=== PATIENT | female | born 1995 | race Caucasian/White ===

== ENCOUNTER 2016-05-13 13:41 | Outpatient (CLI) | payer OTHER ==
[~2016-05-13] VITALS: Ht 152.4 cm; Wt 71.2 kg
[2016-05-13 14:00] VITALS: Ht 152.4 cm; Wt 71.2 kg
[2016-05-13 14:01] VITALS: BP 115/68; PULSE 90; RESP 20
[2016-05-13] MEDS ORDERED: PREN1TAB79 PO (14:03)
--- NOTE | 2016-05-13 14:42 | RADRPT ---
PROCEDURE: Ultrasound of the right lower extremity venous system. CLINICAL INDICATION: Right leg pain and swelling, deep venous thrombosis TECHNIQUE: Ruano scale with and without compression, color doppler, spectral doppler of the venous system of the right lower extremity was performed. Venous augmentation maneuvers were utilized. COMPARISON: No prior studies are available for comparison. FINDINGS: Common femoral vein: Patent. Superficial femoral vein: Patent. Popliteal vein: Patent. Calf veins: Patent. No soft tissue abnormalities are identified. IMPRESSION: No evidence of a deep vein thrombosis within the right lower extremity. RPTAT: AADD .Altaf Templeton MD, MD Date Time Electronically viewed and signed by .Altaf Templeton MD, on 05/13/2016 14:42 .B/
--- NOTE | 2016-05-13 14:42 | RADRPT ---
PROCEDURE: OB ultrasound for biophysical profile CLINICAL INDICATION: Biophysical profile. . TECHNIQUE: Multiple sonographic images of the pelvis were obtained. Transabdominal view of the gr avid uterus are available for review. The images were reviewed on a PACS workstation. COMPARISON: None FINDINGS: Single intrauterine gestation. Presentation: Cephalic. Partially visualized placenta: Fundal breathing movement = 2/2 tone = 2/2 motion = 2/2 HARLEY = 2/2 HARLEY = 10.6 cm heart rate: 135 beats per minute IMPRESSION: Single intrauterine gestation. Biophysical profile 10/09 RPTAT: AADD .Altaf Templeton MD, MD Date Time Electronically viewed and signed by .Altaf Templeton MD, on 05/13/2016 14:41 .B/
--- NOTE | 2016-05-13 15:07 | TRIAGE ---
OB Triage Datetime Report Generated by CPN: 05/13/2016 15:06 Datetime: 05/13/2016 14:16 Vaginal Exam Dilatation (cms): 0.0 Effacement (%): 0 Exam By: MACHO ROMERO Vaginal Bleeding: None Cervix, Consistency: Firm Cervix, Position: Midposition Datetime: 05/13/2016 13:55 Time of Arrival: 05/13/2016 13:35 EGA: 36.5 Arrived By: Ambulatory Arrived From: Home Chief Complaint: UCS SINCE 0400 Movement: Present Contractions: Denies/Absent Time Contractions Began: 05/13/2016 04:00 Rupture of Membranes: Denies Vaginal Bleeding: None Vaginal Discharge: Denies Recent Sexual Intercouse: Denies Abdominal Trauma: Not Applicable Patient Complaints: Contractions; Other Additional Patient Complaints: RIGHT LEG PAIN AND SWELLING Time Provider Notified: 05/13/2016 13:50 Provider Notified: DR OSBORNE Initial Plan: EFM,US OF RIGHT LEG OB US Datetime: 05/13/2016 13:54 Maternal Assessment Level of Consciousness: Fully Conscious DTR's/Clonus: DTRs 2+; No Clonus Headache: Denies Blurred Vision: No Respiratory Effort: Unlabored; Regular Rhythm; Equal Expansion Breath Sounds, Left: Clear and Equal Breath Sounds, Right: Clear and Equal Nausea/Vomiting: Denies RUQ Epigastric Pain: Denies Facial Edema: None Temperature Route: Axillary Fall Risk Assessment History of Falling: (0) No Secondary Diagnosis: (0) No Ambulatory Aid: (0) Bedrest/Nurse Assist IV Therapy: (0) No Gait: (0) Normal/Bedrest/Immobile Mental Status: (0) Oriented to Own Ability Fall Score: 0 Fall Risk Score Definition: No Risk: No action required Datetime: 05/13/2016 13:49 Maternal Assessment Level of Consciousness: Fully Conscious DTR's/Clonus: DTRs 2+ Headache: Denies Blurred Vision: No Nausea/Vomiting: Denies RUQ Epigastric Pain: Denies Facial Edema: None Labor Evaluation Frequency: NONE AT THIS TIME Pattern: Normal: <= 5 Contractions in 10 Minutes Resting Tone [place]: Relaxed Heart Rate FHR Baseline Rate: 145 Monitor Mode: External US FHR Baseline Changes: No Baseline Change Variability: Minimal - Undetectable to <=5 bpm Decelerations: None Category: Category I Pain Assessment Pain Scale: 7 Pain Presence: Intermittent Pain Type: Contraction Pain Location: Abdomen Pain Goal: 4 Membrane Status: Intact
--- NOTE | 2016-05-14 07:03 | PN ---
DATE: The patient is a 20-year-old with a ____ contractions. ____ vaginal bleeding. Positive movement. PAST MEDICAL HISTORY: None. Vital signs ____ within normal limits. Category 1 tracing. Os is closed. ____. The patient will be discharged home. 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 Dictated By: CLINTON OSBORNE MD /BECKI Conf#: [id number] DID#: [id number]
== END 2016-05-13 15:05 | disposition home or self-care (01) ==
LOC: OBT 13:41 → L-D 13:43 → OBT 15:05
PROVIDERS: ATTEND Specialist
DX: O36.8130 Decreased fetal movements, third trimester, not applicable or unspecified (principal); O26.893 Other specified pregnancy related conditions, third trimester; M79.661 Pain in right lower leg; M79.89 Other specified soft tissue disorders; O62.9 Abnormality of forces of labor, unspecified; Z3A.36 36 weeks gestation of pregnancy
CPT/HCPCS: 76818; 93971; Z7500; G0463

== ENCOUNTER 2016-05-28 16:48 | Outpatient (CLI) | payer OTHER ==
[~2016-05-28] VITALS: Ht 152.4 cm; Wt 73.6 kg
[~2016-05-28 16:48] MED LIST: PREN1TAB79 PO
[2016-05-28 17:30] VITALS: BP 119/58; PULSE 93; RESP 18; Ht 152.4 cm; Wt 73.6 kg
--- NOTE | 2016-05-29 07:11 | PN ---
DATE: The patient is a 20-year-old ____ weeks complaining of uterine contractions. ____ no vaginal bleedi ng. Positive movement. PAST MEDICAL HISTORY: None. PHYSICAL EXAMINATION: Stable. Exam within normal limits. Os is closed. NST is reactive. ASSESSMENT: Intrauterine at ____, false labor. PLAN: Discharge home. Follow up with OB within 2 to 3 days. ____ precautions given. Stable upon discharge. Dictated By: CLINTON OSBORNE MD /NTS Conf#: [id number] DID#: [id number]
== END 2016-05-28 18:12 | disposition home or self-care (01) ==
LOC: OBT 16:48 → L-D 16:48 → OBT 18:12
DX: O47.1 False labor at or after 37 completed weeks of gestation (principal); Z3A.38 38 weeks gestation of pregnancy
CPT/HCPCS: G0463

== ENCOUNTER 2016-05-29 23:14 | Inpatient (IN) | payer OTHER ==
[~2016-05-29] VITALS: Ht 152.4 cm; Wt 73.6 kg
[2016-05-29 23:30] VITALS: Ht 152.4 cm; Wt 73.6 kg
[2016-05-29 23:31] VITALS: BP 127/59; PULSE 71; RESP 18
[2016-05-30] MEDS: LACTATED RINGER'S 1,000 ML IV SCH ×2 (03:03→13:34)
[2016-05-30] MEDS ORDERED: LACTATED RINGER'S 1,000 ML IV PRN (03:19)
[2016-05-30] MEDS ORDERED: LIDOCAINE 1% (MPF) 30 ML INJ INJ PRN (03:30)
[2016-05-30] MEDS ORDERED: BUTORPHANOL 2 MG INJ IV PRN ×2 (03:30)
[2016-05-30] MEDS ORDERED: OXYTOCIN 30 UNITS/LR 500 ML IV SCH ×3 (03:30→09:00)
[2016-05-30] MEDS ORDERED: OXYTOCIN 30 UNITS/LR 500 ML IV PRN ×2 (03:30→22:00)
[2016-05-30] MEDS ORDERED: CARBOPROST 250 MCG INJ IM PRN ×2 (03:30→22:00)
[2016-05-30] MEDS ORDERED: AMPICILLIN 2 GM/NS (PMX) 100 ML IV ONE (03:30)
[2016-05-30] MEDS ORDERED: IBUPROFEN 600 MG TAB PO PRN (03:30)
[2016-05-30] MEDS ORDERED: MISOPROSTOL 200 MCG TAB PR PRN ×2 (03:30→22:00)
[2016-05-30] MEDS ORDERED: ACETAMINOPHEN/CODEINE #3 TAB PO PRN ×2 (03:30→22:00)
[2016-05-30] MEDS ORDERED: METHYLERGONOVINE 0.2 MG INJ IM PRN ×2 (03:30→22:00)
[2016-05-30 03:37] LABS: ADD SCAN DIFF NO
[2016-05-30 03:38] LABS: BASOPHILS % 0.4 % (0.0-2.0); EOSINOPHILS # 0.1 10^3/ul (0.0-0.5); EOSINOPHILS % 0.6 % (0.0-7.0); HEMATOCRIT 31.8 % (37.0-47.0); HEMOGLOBIN 10.4 g/dl (12.0-16.0); LYMPHOCYTES # 1.8 10^3/ul (0.8-2.9); LYMPHOCYTES % 21.6 % (15.0-51.0); MEAN CORPUSCULAR HEMOGLOBIN 29.5 pg (29.0-33.0); MEAN CORPUSCULAR HGB CONC 32.7 g/dl (32.0-37.0); MEAN CORPUSCULAR VOLUME 90.1 fl (82.0-101.0); MEAN PLATELET VOLUME 12.8 fl (7.4-10.4); MONOCYTE # 0.9 10^3/ul (0.3-0.9); NEUTROPHIL # 5.4 10^3/ul (1.6-7.5); PLATELET COUNT 209 10^3/UL (140-415); RED BLOOD COUNT 3.53 10^6/ul (4.20-5.40); RED CELL DISTRIBUTION WIDTH 13.3 % (11.5-14.5); WHITE BLOOD COUNT 8.1 10^3/ul (4.8-10.8)
[2016-05-30 03:48] LABS: INR 0.94; PROTIME 12.6 Sec (12.2-14.2)
[2016-05-30 03:49] LABS: PARTIAL THROMBOPLASTIN TIME 24.3 Sec (25.0-35.0)
[2016-05-30 03:58] LABS: ALBUMIN 3.1 g/dl (3.3-4.9); CHLORIDE 106 mmol/L (97-110); POTASSIUM 4.3 mmol/L (3.5-5.1); SODIUM 136 mmol/L (135-144)
[2016-05-30 04:00] LABS: CREATININE 0.77 mg/dl (0.44-1.00)
[2016-05-30 04:01] LABS: ALANINE AMINOTRANSFERASE 20 IU/L (13-69); ALBUMIN/GLOBULIN RATIO 0.96; ALKALINE PHOSPHATASE 199 IU/L (42-121); ANION GAP 10 (8-16); ASPARTATE AMINO TRANSFERASE 22 IU/L (15-46); BILIRUBIN,INDIRECT 0.2 mg/dl (0-1.1); BILIRUBIN,TOTAL 0.2 mg/dl (0.2-1.3); BLOOD UREA NITROGEN 15 mg/dl (7-20); CARBON DIOXIDE 24 mmol/L (21-31); GLUCOSE 87 mg/dl (70-220); TOTAL PROTEIN 6.3 g/dl (6.1-8.1)
[2016-05-30 04:02] LABS: CALCIUM 8.8 mg/dl (8.4-10.2)
[2016-05-30] MEDS ORDERED: FENTAnyl 2MCG/ML-ROPIV 0.2% 100 ML ONE (04:51)
[2016-05-30] MEDS ORDERED: FENTAnyl 2MCG/ML-ROPIV 0.2% 100 ML BAG EPI SCH (06:00)
[2016-05-30] MEDS ORDERED: ONDANSETRON 4 MG INJ IV PRN ×2 (06:00→22:00)
[2016-05-30] MEDS ORDERED: NALOXONE (0.4 MG/ML) INJ IV PRN (06:00)
[2016-05-30] MEDS ORDERED: HYDROmorphONE 1 MG/ML SYG IV PRN ×2 (06:00)
[2016-05-30] MEDS ORDERED: DIPHENHYDRAMINE 50 MG INJ IV PRN (06:00)
--- NOTE | 2016-05-30 07:27 | HP ---
Date/Time of Note Date/Time of Note DATE: 05/30/16 TIME: 07:22 OB - History Hx of Present Chief Complaint: contractions Estimated Due Date: Jun 07, 2016 : 1 Para: 0 Spontaneous : 0 Therapeutic : 0 Care: Good Care Ultrasounds: Normal mid trimester US Obstetrical Complications: None Medical Complications: None Past Family/Social History * Past Medical, Surgical, Family and Obstetric Histories reviewed from chart. GBS Status: Negative OB Admission Exam Vital Signs Vital Signs Vital Signs Date Time Temp Pulse Resp B/P Pulse Ox O2 Delivery O2 Flow Rate FiO2 05/29/16 23:31 98.1 71 18 127/59 Room Air Physical Exam HEENT: WNL Heart: Rhythm Normal Lungs: Clear Abdomen: WNL Extremities: Normal Reflexes: Normal Cervical Dilatation: 2cm Effacement: 100% Station: -1 Membranes: Intact Heart Rate: 140's Accelerations: Accelerations Present Decelerations: No Decelerations Varibility: Moderate Last 72 hours Lab Results CBC & BMP 05/30/16 03:03 Liver Function Test 05/30/16 03:03 Alanine Aminotransferase (ALT/SGPT) 20 Albumin 3.1 L Alkaline Phosphatase 199 H Aspartate Amino Transf (AST/SGOT) 22 Direct Bilirubin 0.00 Total Protein 6.3 OB Assessment/Plan Reason for admission: active labor Plan: Expectant Management ROSEMARY HER MD May 30, 2016 07:27
[2016-05-30] MEDS ORDERED: AMPICILLIN 1 GM/NS (PMX) 50 ML IV SCH (07:30)
[2016-05-30] MEDS ORDERED: LACTATED RINGER'S 1,000 ML IV* SCH (21:43)
--- NOTE | 2016-05-30 21:48 | PN ---
Date/Time of Note Date/Time of Note DATE: 05/30/16 TIME: 21:46 OB Subjective Subjective Subjective late entry note Patient is comfortable with epidural. Denies any complaint. OB Objective Objective Objective GA: Alert and oriented 4 , is not in any acute distress Abdomen: Soft, gravid, estimated weight 7.5 Sterile vaginal examination: 3 cm 80% -1 heart tracing: Category 1 GBS negative OB Assessment/Plan Other Assessment: IUP at 39 weeks and 1 day Early labor GBS negative heart tracing category 1 Other plan: Start active management of labor with Pitocin Anticipate RANJANA MEYER MD May 30, 2016 21:48
[2016-05-30 21:50] VITALS: BP 143/66; PULSE 63; RESP 18
--- NOTE | 2016-05-30 21:50 | LDN ---
Date/Time of Note Date/Time of Note DATE: 05/30/16 TIME: 21:48 Delivery Summary Weeks of Gestation 39 wekes and 1 day Placenta Delivered: Spontaneously Meconium: none Episiotomy: No Perineal laceration: 1 Laceration repair: first degree right labial laceration about 4 cm and 2 cm left labial laceration repaired with 3-0 chromic Anesthesia type: Epidural Estimated blood loss: 400 Sponge & Needle done & correct: Yes All needle counts correct: Yes Any foreign bodies felt in the: No Problems: Delivery Information Sex Sex: female Apgars 1 Minute: 9 5 Minute: 9 Suctioning Nose & mouth suctioned at mala: Yes Delee suction performed: Yes Umbilical Cord Umbilical cord with: 3 Vessels Cord presentations: no nuchal cord Cord Blood was obtained: Yes Mother & Baby Disposition Disposition Weight : 7 lbs and 8 oz RANJANA MEYER MD May 30, 2016 21:50
[2016-05-30] MEDS ORDERED: WITCH HAZEL/GLYCERIN PAD PR PRN (22:00)
[2016-05-30] MEDS ORDERED: DIPHENHYDRAMINE 25 MG CAP PO PRN (22:00)
[2016-05-30] MEDS ORDERED: ZOLPIDEM 5 MG TAB PO PRN (22:00)
[2016-05-30] MEDS ORDERED: LANOLIN 7 GM TUBE TOP PRN (22:00)
[2016-05-30 22:05] VITALS: BP 149/71; PULSE 66; RESP 18
[2016-05-30] MEDS: SENNA/DOCUSATE NA (8.6MG/50MG) TAB PO SCH (22:59)
[2016-05-30 23:05] LABS: HEMATOCRIT 31.4 % (37.0-47.0); HEMOGLOBIN 10.2 g/dl (12.0-16.0)
[2016-05-31] VITALS: BP 119/71; PULSE 74; RESP 18
[2016-05-31 04:00] VITALS: BP 99/46; PULSE 73
[2016-05-31] MEDS: IBUPROFEN 600 MG TAB PO SCH ×5 (06:37→23:09)
[2016-05-31 08:00] VITALS: BP 116/58; PULSE 75; RESP 16
[2016-05-31] MEDS: SENNA/DOCUSATE NA (8.6MG/50MG) TAB PO SCH ×2 (09:00→20:48)
--- NOTE | 2016-05-31 10:17 | PN ---
Date/Time of Note Date/Time of Note DATE: 05/31/16 TIME: 10:11 OB Subjective Subjective Subjective May 31, 2016 1 hospital consult This patient is a 20 years old primigravida who was admitted in the hospital yesterday after and had an spontaneous vaginal delivery. She had a laceration of the right labia majora otherwise with her delivery went without any complication Today's the day 1 she is doing very well she is afebrile abdomen is soft breasts are soft nipples are intact fundus is firm she has a moderate amount of vaginal discharge No calf tenderness ejection reflexes normal [place] is doing well We will check her lab test today Laboratory Tests Test 05/30/16 22:59 Hemoglobin 10.2g/dl Hematocrit 31.4% Current Medications Medications (Trade) Dose Ordered Sig/Agustina Route PRN Reason Start Time Stop Time Status Last Admin Dose Admin Lactated Ringer's 1,000 ml @ 125 mls/hr Q8H IV 05/29/16 23:33 05/30/16 21:45 DC 05/30/16 13:34 Ampicillin 100 ml @ 100 mls/hr ONCE ONCE IV 05/30/16 03:30 05/30/16 04:17 DC Ampicillin (Ampicillin 1 Gm/ NS (Pmx)) 50 ml @ 100 mls/hr Q4H IV 05/30/16 07:30 05/30/16 07:30 DC Butorphanol Tartrate (Stadol) 1 mg Q2H PRN IV PAIN 05/30/16 03:30 05/30/16 21:46 DC Butorphanol Tartrate (Stadol) 2 mg Q2H PRN IV PAIN 05/30/16 03:30 05/30/16 21:46 DC 05/30/16 03:46 Lidocaine 30 ml 30 ml ONCE PRN INJ EPISIOTOMY/TEARING 05/30/16 03:30 05/30/16 21:46 DC Oxytocin/Lactated Ringer's 500 ml @ 125 mls/hr ONCE -MAY REPEAT X1 IV 05/30/16 03:30 05/30/16 21:46 DC 05/30/16 20:35 Oxytocin/Lactated Ringer's 500 ml @ 125 mls/hr ONCE IV 05/30/16 03:30 05/30/16 21:46 DC Ibuprofen (Motrin) 600 mg ONCE PRN PO Mild Pain (Pain Score 1-3) 05/30/16 03:30 05/30/16 21:46 DC 05/30/16 21:36 Acetaminophen/ Codeine Phosphate 2 tab 2 tab ONCE PRN PO Moderate to Severe Pain (4-10) 05/30/16 03:30 05/30/16 21:46 DC Lactated Ringer's 1,000 ml @ 2,000 mls/hr Q30M PRN IV PRE-EPIDURAL BOLUS 05/30/16 03:19 05/30/16 21:46 DC 05/30/16 04:31 Oxytocin/Lactated Ringer's 500 ml @ 0 mls/hr ONCE PRN IV For Hemorrhage Management 05/30/16 03:30 05/30/16 21:46 DC Methylergonovine Maleate (Methergine) 0.2 mg ONCE PRN IM VAGINAL BLEEDING 05/30/16 03:30 05/30/16 21:46 DC Carboprost Tromethamine (Hemabate) 250 mcg ONCE PRN IM VAGINAL BLEEDING 05/30/16 03:30 05/30/16 21:45 DC Misoprostol 1000 mcg 1,000 mcg ONCE PRN RI VAGINAL BLEEDING 05/30/16 03:30 05/30/16 21:45 DC Fentanyl/ Ropivacaine 100 ml @ ud STK-MED ONCE .ROUTE 05/30/16 04:51 05/30/16 04:52 DC Naloxone HCl (Narcan) 0.1 mg Q2M PRN IV FOR RESP RATE 8 OR LESS 05/30/16 06:00 05/30/16 21:45 DC Hydromorphone HCl (Dilaudid) 0.2 mg Q3H PRN IV PAIN LEVEL 1-5 05/30/16 06:00 05/30/16 21:45 DC Hydromorphone HCl (Dilaudid) 0.4 mg Q3H PRN IV PAIN LEVEL 6-10 05/30/16 06:00 05/30/16 21:45 DC Diphenhydramine HCl (Benadryl) 25 mg Q6H PRN IV ITCHING 05/30/16 06:00 05/30/16 21:45 DC Ondansetron HCl (Zofran Inj) 4 mg Q6H PRN IV NAUSEA AND/OR VOMITING 05/30/16 06:00 05/30/16 21:45 DC Fentanyl/ Ropivacaine 100 ml 100 ml EPIDURAL INFUSION EPI 05/30/16 06:00 05/30/16 21:46 DC 05/30/16 14:33 Oxytocin/Lactated Ringer's 500 ml @ 0 mls/hr Q0M IV 05/30/16 09:00 05/30/16 21:45 DC 05/30/16 09:38 Lactated Ringer's (Lr) 1,000 ml @ 125 mls/hr Q8H IV* 05/30/16 21:43 Ibuprofen (Motrin) 600 mg Q6 PO 05/31/16 00:00 05/31/16 06:37 Acetaminophen/ Codeine Phosphate (Tylenol No.3) 1 tab Q4H PRN PO PAIN LEVEL 1-5 05/30/16 22:00 05/30/16 22:59 Ondansetron HCl (Zofran Inj) 4 mg Q6H PRN IV NAUSEA AND/OR VOMITING 05/30/16 22:00 Diphenhydramine HCl (Benadryl) 25 mg Q6H PRN PO PRURITUS 05/30/16 22:00 Zolpidem Tartrate (Ambien) 5 mg QHS PRN PO INSOMNIA 05/30/16 22:00 Senna/Docusate Sodium (Senokot-S) 1 tab BID PO 05/30/16 22:00 05/30/16 22:59 Witch Zoraida/ Glycerin (Tucks Pads) 1 pad BEDSIDE MEDICATION PRN RI HEMORRHOID/EPISIOTMY PAIN 05/30/16 22:00 05/30/16 23:00 Lanolin (Qlw-Y-Ykojaq) 1 applic BEDSIDE MEDICATION PRN TOP BEDSIDE FOR JEAN-PIERRE TO NIPPLES 05/30/16 22:00 Measles/Mumps/ Rubella Vaccine Live (Mmr Ii Vaccine) 0.5 ml ONCE ONCE SC* 06/01/16 09:00 06/01/16 09:01 Diphtheria/ Tetanus/Acell Pertussis (Adacel) 0.5 ml ONCE ONCE IM* 06/01/16 09:00 06/01/16 09:01 Varicella Virus Vaccine Live 1350 unit 1,350 unit ONCE ONCE SC* 06/01/16 09:00 06/01/16 09:01 Oxytocin/Lactated Ringer's 500 ml @ 0 mls/hr ONCE PRN IV For Hemorrhage Management 05/30/16 22:00 Methylergonovine Maleate (Methergine) 0.2 mg ONCE PRN IM VAGINAL BLEEDING 05/30/16 22:00 Carboprost Tromethamine (Hemabate) 250 mcg ONCE PRN IM VAGINAL BLEEDING 05/30/16 22:00 Misoprostol (Cytotec) 1,000 mcg ONCE PRN RI VAGINAL BLEEDING 05/30/16 22:00 Post day 1 Patient is doing well, Ambulatory She is afebrile Abdomen is soft , Fundus is firm Moderate amount of lochia Breasts are soft, Nipples are intact No calf tenderness. Perineum is healing well. Breast feeding the new born. THANH DUARTE MD May 31, 2016 10:17
[2016-05-31 16:00] VITALS: BP 96/49; PULSE 75; RESP 18
[2016-05-31 20:00] VITALS: BP 123/50; PULSE 87; RESP 18
[2016-06-01 04:00] VITALS: BP 135/70; PULSE 53; RESP 18
[2016-06-01] MEDS: IBUPROFEN 600 MG TAB PO SCH ×2 (05:52→11:56)
[2016-06-01 08:00] VITALS: BP 125/60; PULSE 83; RESP 18
[2016-06-01] MEDS ORDERED: MEASLES,MUMPS,RUBELLA VACCINE INJ SC* ONE (09:00)
[2016-06-01] MEDS ORDERED: DIPHTH/TET/ACEL PERTUSS (ADULT) 0.5 ML VIAL IM* ONE (09:00)
[2016-06-01] MEDS ORDERED: VARICELLA VACCINE LIVE/PF 1,350 UNIT/0.5 ML ML SC* ONE (09:00)
[2016-06-01] MEDS: SENNA/DOCUSATE NA (8.6MG/50MG) TAB PO SCH (09:47)
--- NOTE | 2016-06-01 12:16 | QN ---
Documentation Comment PPD#2 is stable afebril tolerates diet No VB +BM +Voids VS stable Gen NAD Abd soft NT ND Genitalai No blood at perinium Discharge Home JEANNA ACEVEDO M.D. Jun 01, 2016 12:16
--- NOTE | 2016-06-01 12:17 | DS ---
Date/Time of Note Date/Time of Note DATE: 06/01/16 TIME: 12:17 Discharge Summary Admission/Discharge Info Admit Date/Time May 30, 2016 at 03:12 Discharge Date/Time 06/01/2016 Final Diagnosis 39 wks Labor Patient Condition: Stable Hospital Course uneventful Home Meds Reported Medications Vit W-Ca,Fe,FA(<1 mg) ( Vitamins) 1 Each Tablet, 1 EACH PO for 7 Days, #1 TAB 05/13/16 JEANNA ACEVEDO M.D. Jun 01, 2016 12:17
== END 2016-06-01 14:30 | disposition home or self-care (01) | DRG 775 ==
LOC: OBT 23:14 → L-D 23:15 → OBT 05-30 03:10 → L-D 05-30 03:12 → PP1 05-30 21:57
PROVIDERS: ADMIT Obstetrics & Gynecology; ATTEND Obstetrics & Gynecology
PROC: 10E0XZZ Delivery of Products of Conception, External Approach (ICD-10-PCS; principal; 2016-05-30)
PROC: 0HQ9XZZ Repair Perineum Skin, External Approach (ICD-10-PCS; 2016-05-30)
DX: O70.0 First degree perineal laceration during delivery (principal); Z37.0 Single live birth; Z3A.39 39 weeks gestation of pregnancy
CPT/HCPCS: 36415; 62319; 80053; 85014; 85018; 85025; 85610; 85730; 86592; 86900; 86901; 87340; 90715; 90716; G0463; J2590; J3010; J7120

== ENCOUNTER 2016-06-08 22:09 | Emergency (ER) | payer OTHER ==
[~2016-06-08] VITALS: Ht 152.4 cm; Wt 64.0 kg
[2016-06-08 22:43] VITALS: Ht 152.4 cm; Wt 64.0 kg
[2016-06-09 00:30] LABS: URINE BLOOD (Dip) POC 2+ (NEGATIVE)
[2016-06-09 00:34] LABS: ADD SCAN DIFF NO
[2016-06-09 00:37] LABS: BASOPHIL # 0.1 10^3/ul (0.0-0.1); BASOPHILS % 0.7 % (0.0-2.0); EOSINOPHILS # 0.1 10^3/ul (0.0-0.5); EOSINOPHILS % 0.8 % (0.0-7.0); HEMATOCRIT 38.9 % (37.0-47.0); HEMOGLOBIN 12.6 g/dl (12.0-16.0); LYMPHOCYTES # 2.5 10^3/ul (0.8-2.9); LYMPHOCYTES % 28.2 % (15.0-51.0); MEAN CORPUSCULAR HEMOGLOBIN 29.4 pg (29.0-33.0); MEAN CORPUSCULAR HGB CONC 32.4 g/dl (32.0-37.0); MEAN CORPUSCULAR VOLUME 90.7 fl (82.0-101.0); MEAN PLATELET VOLUME 9.6 fl (7.4-10.4); MONOCYTE # 0.6 10^3/ul (0.3-0.9); MONOCYTES % 7.4 % (0.0-11.0); NEUTROPHIL # 5.5 10^3/ul (1.6-7.5); NEUTROPHILS % 62.6 % (39.0-77.0); PLATELET COUNT 508 10^3/UL (140-415); RED BLOOD COUNT 4.29 10^6/ul (4.20-5.40); RED CELL DISTRIBUTION WIDTH 13.1 % (11.5-14.5); WHITE BLOOD COUNT 8.7 10^3/ul (4.8-10.8)
[2016-06-09 00:42] LABS: ADD UMIC YES; URINE BILIRUBIN (Dip) NEGATIVE (NEGATIVE); URINE BLOOD (Dip) 3+ (NEGATIVE); URINE COLOR LT. YELLOW (YELLOW); URINE GLUCOSE (Dip) NEGATIVE (NEGATIVE); URINE KETONES (Dip) NEGATIVE (NEGATIVE); URINE LEUKOCYTE ESTERASE (Dip) 2+ (NEGATIVE); URINE NITRITE (Dip) NEGATIVE (NEGATIVE); URINE TOTAL PROTEIN (Dip) NEGATIVE (NEGATIVE); URINE UROBILINOGEN (Dip) 0.2 E.U./dL (0.1-1.0)
[2016-06-09 00:52] LABS: BACTERIA,URINE OCCASIONAL; SQUAMOUS EPITHELIAL CELL,UR OCCASIONAL
[2016-06-09 00:55] LABS: ALBUMIN 4.1 g/dl (3.3-4.9); BILIRUBIN,INDIRECT 0.2 mg/dl (0-1.1); BILIRUBIN,TOTAL 0.2 mg/dl (0.2-1.3); CALCIUM 9.1 mg/dl (8.4-10.2); CREATININE 0.94 mg/dl (0.44-1.00); TOTAL PROTEIN 8.2 g/dl (6.1-8.1)
[2016-06-09] MEDS ORDERED: CEPH-443 PO (01:03)
--- NOTE | 2016-06-09 01:11 | ERD ---
ER Documentation Chief Complaint Date/Time DATE: 06/09/16 TIME: 01:09 Chief Complaint vaginal bleed x2 days. More today and NSD 05/30/16 HPI Patient is a 20-year-old female who is status post normal vaginal delivery on May 30. She states that since then she has had some mild dysuria as well as vaginal bleeding every day which is usually been light but today she had a little bit stronger vaginal bleeding. She does admit to urinary frequency. Denies fever. Denies any cough. Denies chest pain or shortness of breath. Denies any abnormal discharge. ROS All systems reviewed and are negative except as per history of present illness. Medications Home Meds Active Scripts Cephalexin* (Keflex*) 500 Mg Capsule, 500 MG PO BID for 5 Days, CAP Prov:RAGHAV ELIAS PA-C 06/09/16 Allergies Allergies: Coded Allergies: No Known Drug Allergies (Verified Allergy, Unknown, 05/29/16) PMhx/Soc History of Surgery: No Anesthesia Reaction: No Hx Neurological Disorder: No Hx Respiratory Disorders: No Hx Cardiac Disorders: No Hx Psychiatric Problems: No Hx Miscellaneous Medical Probl: No Hx Alcohol Use: No Hx Substance Use: No Hx Tobacco Use: No Smoking Status: Never smoker FmHx Family History: No diabetes Physical Exam Vitals Vital Signs Date Time Temp Pulse Resp B/P Pulse Ox O2 Delivery O2 Flow Rate FiO2 06/08/16 22:43 99.2 94 20 113/72 98 Physical Exam General: well developed, well nourished, alert, nontoxic, no distress Head: normocephalic, atraumatic Neck: Supple, nontender, no lymphadenopathy, no midline tenderness Respiratory: Clear to auscaultation bilaterally, speaks in full sentences, no use of accesory muscles or labored breathing, no rales, ronchi, or wheezing Cardiovascular: RRR, No murmurs GI: soft, non tender, non distended, negative murphys sign, negative mcburneys point tenderness, no cva tenderness bilaterally, no rebound or guarding : Performed with leroy Trent RN, no active bleeding, no cuts or lacerations, no abnormal discharge Result Diagram: 06/09/16 0023 06/09/16 0023 Results 24 hrs Laboratory Tests Test 06/09/16 00:23 06/09/16 00:29 White Blood Count 8.710^3/ul Red Blood Count 4.2910^6/ul Hemoglobin 12.6g/dl Hematocrit 38.9% Mean Corpuscular Volume 90.7fl Mean Corpuscular Hemoglobin 29.4pg Mean Corpuscular Hemoglobin Concent 32.4g/dl Red Cell Distribution Width 13.1% Platelet Count 83782^3/UL Mean Platelet Volume 9.6fl Neutrophils % 62.6% Lymphocytes % 28.2% Monocytes % 7.4% Eosinophils % 0.8% Basophils % 0.7% Nucleated Red Blood Cells % 0.0/100WBC Neutrophils # 5.510^3/ul Lymphocytes # 2.510^3/ul Monocytes # 0.610^3/ul Eosinophils # 0.110^3/ul Basophils # 0.110^3/ul Nucleated Red Blood Cells # 0.010^3/ul Urine Color LT. YELLOW Urine Clarity CLEAR Urine pH 6.0 Urine Specific [place] 1.020 Urine Ketones NEGATIVE Urine Nitrite NEGATIVE Urine Bilirubin NEGATIVE Urine Urobilinogen 0.2 E.U./dL Urine Leukocyte Esterase 2+ Urine Microscopic RBC 5-10/HPF Urine Microscopic WBC 10-25/HPF Urine Squamous Epithelial Cells OCCASIONAL Urine Bacteria OCCASIONAL Urine Hemoglobin 3+ Urine Glucose NEGATIVE% Urine Total Protein NEGATIVE Sodium Level 136mmol/L Potassium Level 4.0mmol/L Chloride Level 104mmol/L Carbon Dioxide Level 25mmol/L Anion Gap 11 Blood Urea Nitrogen 14mg/dl Creatinine 0.94mg/dl Glucose Level 78mg/dl Calcium Level 9.1mg/dl Total Bilirubin 0.2mg/dl Direct Bilirubin 0.00mg/dl Indirect Bilirubin 0.2mg/dl Aspartate Amino Transf (AST/SGOT) 24IU/L Alanine Aminotransferase (ALT/SGPT) 27IU/L Alkaline Phosphatase 171IU/L Total Protein 8.2g/dl Albumin 4.1g/dl Globulin 4.10g/dl Albumin/Globulin Ratio 1.00 Bedside Urine pH (LAB) 5.5 Bedside Urine Protein (LAB) Negative Bedside Urine Glucose (UA) Negative Bedside Urine Ketones (LAB) Negative Bedside Urine Blood 2+ Bedside Urine Nitrite (LAB) Negative Bedside Urine Leukocyte Esterase (L 1+ Procedures/MDM Patient presents with vaginal bleeding since her normal vaginal delivery on 30 May. She is well-appearing in no distress. Her GI examination and examination are within normal limits. I reviewed the case with Dr. Bullock who recommended CBC, chemistry panel, and urinalysis. Urinalysis showed evidence of urinary tract infection otherwise labs were normal. Patient is discharged with Keflex. Recommended this patient follow up with her primary care doctor within 48 hours or return to the emergency room for any worsening of symptoms. However this time I do believe there is suitable for outpatient management. I answered all their questions and they agreed with the plan and were discharged home. Departure Diagnosis: Primary Impression: Cystitis Additional Impression: Vaginal bleeding Condition: Stable Patient Instructions: Cystitis Additional Instructions: Call your primary care doctor TOMORROW for an appointment during the next 1-2 days.See the doctor sooner or return here if your condition worsens before your appointment time. RAGHAV ELIAS PA-C Jun 09, 2016 01:11
== END 2016-06-09 01:15 | disposition home or self-care (01) ==
LOC: FTE 22:09
DX: O86.22 Infection of bladder following delivery (principal); B96.89 Other specified bacterial agents as the cause of diseases classified elsewhere
CPT/HCPCS: 80053; 81001; 81003; 85025; Z7502; 99283